=== PATIENT | female | born 1940 | race Caucasian/White ===

== ENCOUNTER → 2017-07-01 | Outpatient (CLI) | payer MEDICARE, OTHER ==
[~2017-07-01] MED LIST: ACIDOPHILUS1 EAC1 PO; ADVAIR DISCUS; ALBU90OI INH; ALBU90OI6; ALBU90OI6 INH; AMIT25; AMIT25 PO; AMIT50 PO; AMOCLA875 PO; AZIT250 PO; Amaryl1 MG; CALCA500CH PO; CALCIT950 PO; CALCIUM; CHOL10002; CHOL10002 PO; CITRACAL + BON1 EACH PO; CITRACAL PO; CITRACAL-VIT D1 EAC2; CODGUAEL PO; CYAN500 PO; Crutch1 EACH MISC; Dazidox10 MG PO; ERGO400 PO; FAMO20; FAMO20 PO; FLUSAL2505 IH; FURO20 PO; Flonase 0.05% N16 GM; GLIM2 PO; GLIM4 PO; HYDACE7.5L PO; HYDGUAL120 PO; LANS30EC; LEVFLO500 PO; LIQUID B-11000 MCG/1; LOSA50; LOSA50 PO; METF500 PO; METF500C PO; METFORMIN PO; METO25ER; METO50 PO; METO50ER; NAPR220; OMEP20ER PO; OXYC10TA19 PO; Omeprazole20 M1 PO; POTASSIUM GLUC PO; PROBIOTIC1 EAC1 PO; Percocet 5-3251 EACH PO; RABE20; RAMI5; RAMI5 PO; RISE30; SITA100T2 PO; SPIRIVA INH; SUCR1 PO; TELM80 PO; TIOT18; TORS10 PO; TORSE20; TORSE20 PO; VITAMIN B122500 MCG PO; VITAMIN D3 PO; Ventolin Soln3 ML INH
[2017-07-01 09:35] LABS: Source, Urine Clean Catch
[2017-07-01 12:52] LABS: Bilirubin, Urine Neg (Neg); Blood, Urine 5+ (Neg); Glucose Qualitative, Urine 1+ (Neg); Ketones, Urine Neg (Neg); Leukocyte Esterase, Urine 2+ (Neg); Nitrite, Urine Neg (Neg); Protein, Urine 3+ (Neg); Urobilinogen, Urine NORM (Normal)
[2017-07-01 13:25] LABS: Appearance, Urine Hazy (Clear)
[2017-07-01 13:26] LABS: Color, Urine Yellow (P-Yellow)
[2017-07-01 13:27] LABS: Red Blood Cells, Urine TNTC /hpf (0-2); White Blood Cells, Urine 25-50 /hpf (0-5)
[2017-07-01 13:28] LABS: Bacteria Mod /hpf; Squamous Epithelial Cells Rare /hpf (Few)
== END | disposition home or self-care (01) ==
LOC: LAB 09:34
PROVIDERS: Internal Medicine
DX: C34.81 Malignant neoplasm of overlapping sites of right bronchus and lung (principal); C79.51 Secondary malignant neoplasm of bone; D70.2 Other drug-induced agranulocytosis; M79.1 Myalgia; G89.3 Neoplasm related pain (acute) (chronic); R97.8 Other abnormal tumor markers; R30.0 Dysuria; T45.1X5A Adverse effect of antineoplastic and immunosuppressive drugs, initial encounter
CPT/HCPCS: 81001; 87086

== ENCOUNTER → 2017-07-18 | Outpatient (CLI) | payer MEDICARE, OTHER ==
[2017-07-18 11:10] LABS: Source, Urine Clean Catch
[2017-07-18 13:02] LABS: Bilirubin, Urine Neg (Neg); Blood, Urine 5+ (Neg); Glucose Qualitative, Urine Neg (Neg); Ketones, Urine Neg (Neg); Leukocyte Esterase, Urine 1+ (Neg); Nitrite, Urine Neg (Neg); Protein, Urine 3+ (Neg); Specific Gravity, Urine 1.015 (1.003-1.022); Urobilinogen, Urine NORM (Normal)
[2017-07-18 13:13] LABS: Appearance, Urine Cloudy (Clear); Color, Urine Yellow (P-Yellow)
[2017-07-18 13:14] LABS: Bacteria Few /hpf; Red Blood Cells, Urine TNTC /hpf (0-2); Squamous Epithelial Cells Few /hpf (Few)
== END ==
LOC: LAB SHORT 11:04 → LAB 11:04 → LAB FUT 07-03 13:05
PROVIDERS: Internal Medicine
DX: N39.0 Urinary tract infection, site not specified (principal)
CPT/HCPCS: 81001; 87086

== ENCOUNTER 2018-07-31 09:43 | Day surgery (SDC) | payer MEDICARE, OTHER ==
[~2018-07-31] VITALS: Ht 152.4 cm; Wt 60.3 kg
[~2018-07-31 09:43] MED LIST changes: +ALBU2.5V5 NEB; +ALBU90OI61 INH; +Advair Hfa 115-12 GM INH; +BACL10 PO; +HYDCOR10 PO; +LORA.5 PO; +LOSA25 PO; +Lopressor 50 mg50 MG PO; +OXYC5 PO
[2018-07-31] MEDS ORDERED: METF500C PO (11:21)
[2018-07-31] MEDS ORDERED: CETI5 PO (11:22)
--- NOTE | 2018-07-31 12:02 | NUR ---
07/31/18 1202 Tello Kelley WHEN QUESTIONED PT DENIES HAVING A POLST WITH A DNR STATUS. PT STATES SHE IS A FULL CODE NOT A DNR.
--- NOTE | 2018-07-31 13:08 | NUR ---
07/31/18 Verónica FerrisKisha IMAGING TO ROOM.
== END 2018-07-31 14:01 | disposition home or self-care (01) ==
LOC: ORSCSDS 09:43
DX: C34.90 Malignant neoplasm of unspecified part of unspecified bronchus or lung (principal); C34.81 Malignant neoplasm of overlapping sites of right bronchus and lung; C79.51 Secondary malignant neoplasm of bone; C79.70 Secondary malignant neoplasm of unspecified adrenal gland; I10 Essential (primary) hypertension; J44.9 Chronic obstructive pulmonary disease, unspecified; E11.9 Type 2 diabetes mellitus without complications; K21.9 Gastro-esophageal reflux disease without esophagitis; Z79.899 Other long term (current) drug therapy
CPT/HCPCS: 77001; 82947; 93005; 93010; C1788; J1100; J1642; J2250; J2405; J3010; J7120

== ENCOUNTER 2019-01-22 09:19 | Day surgery (SDC) | payer MEDICARE, OTHER ==
[~2019-01-22 09:19] MED LIST changes: +CETI5 PO
== END 2019-01-22 23:59 | disposition home or self-care (01) ==
LOC: CT 09:19 → MHTC 09:20 → CT 10:00
DX: C79.51 Secondary malignant neoplasm of bone (principal); C34.81 Malignant neoplasm of overlapping sites of right bronchus and lung; I10 Essential (primary) hypertension; E11.9 Type 2 diabetes mellitus without complications; J44.9 Chronic obstructive pulmonary disease, unspecified; K21.9 Gastro-esophageal reflux disease without esophagitis; Z87.891 Personal history of nicotine dependence; Z79.899 Other long term (current) drug therapy; Z79.52 Long term (current) use of systemic steroids; Z88.1 Allergy status to other antibiotic agents; Z88.0 Allergy status to penicillin; Z91.09 Other allergy status, other than to drugs and biological substances
CPT/HCPCS: 20225; 77012; 88307; 88311; 88342

== ENCOUNTER 2019-02-08 11:52 | Emergency (ER) | payer MEDICARE, OTHER ==
[~2019-02-08] VITALS: Ht 149.9 cm; Wt 59.0 kg
[2019-02-08 12:36] LABS: BASOPHILS ABSOLUTE AUTO 0.03 K/mm3 (0.00-0.23); BASOPHILS PERCENT AUTO 1 % (0-2); EOSINOPHILS ABSOLUTE AUTO 0.08 K/mm3 (0.00-0.68); EOSINOPHILS PERCENT AUTO 2 % (0-6); Hemoglobin 12.9 g/dL (11.5-16.0); IMMATURE GRAN ABSOLUTE AUTO 0.02 K/mm3 (0.00-0.10); IMMATURE GRAN PERCENT AUTO 0 % (0-1); LYMPHOCYTES ABSOLUTE AUTO 0.45 K/mm3 (0.84-5.20); LYMPHOCYTES PERCENT AUTO 10 % (21-46); MONOCYTES ABSOLUTE AUTO 0.52 K/mm3 (0.16-1.47); MONOCYTES PERCENT AUTO 11 % (4-13); Mean Corpuscular HGB 30.6 pg (26.0-34.0); Mean Corpuscular HGB Conc 33.9 g/dL (31.5-36.5); Mean Corpuscular Volume 90 fL (80-100); Mean Platelet Volume 9.8 fL (9.1-12.4); NEUTROPHILS ABSOLUTE AUTO 3.45 K/mm3 (1.96-9.15); NEUTROPHILS PERCENT AUTO 76 % (41-73); Platelet Count 124 K/mm3 (150-400); RDW Coefficient Variation 14.2 % (11.7-14.2); RDW Standard Deviation 46.4 fL (35.1-46.3); Red Blood Cell Count 4.21 M/mm3 (3.80-5.20); White Blood Cell Count 4.55 K/mm3 (4.00-11.30)
[2019-02-08 12:56] LABS: Alanine Aminotransfer (ALT/SGP 31 U/L (12-78); Albumin, Blood 3.2 g/dL (3.4-5.0); Alk Phos 147 U/L (50-136); Anion Gap 6 mmol/L (6-16); Aspartate Aminotrans (AST/SGOT 24 U/L (12-37); Bilirubin, Total 1.3 mg/dL (0.1-1.0); Blood Urea Nitrogen 11 mg/dL (8-24); Bun/Creatinine Ratio 23.9 (12.0-20.0); CO2, Blood 23 mmol/L (21-32); Calcium, Blood 8.8 mg/dL (8.5-10.1); Chloride, Blood 106 mmol/L (98-108); Creatinine, Blood 0.46 mg/dL (0.40-1.00); Globulin, Blood 3.2 g/dL (2.2-4.0); Glomerular Filtration Rate >60 (60-); Glucose, Blood 330 mg/dL (70-99); Potassium, Blood 3.2 mmol/L (3.5-5.5); Sodium, Blood 135 mmol/L (136-145); Total Protein, Blood 6.4 g/dL (6.4-8.2); Troponin I <0.015 ng/mL (0.000-0.040)
[2019-02-08 14:10] LABS: Source, Urine Clean Catch
[2019-02-08 14:15] LABS: Blood, Urine 5+ (Neg); Glucose Qualitative, Urine 4+ (Neg); Ketones, Urine 1+ (Neg); Leukocyte Esterase, Urine 3+ (Neg); Nitrite, Urine Pos (Neg); Protein, Urine 3+ (Neg); Specific Gravity, Urine 1.015 (1.003-1.022); Urobilinogen, Urine 2+ (Normal)
[2019-02-08 14:19] LABS: Appearance, Urine Cloudy (Clear); Bilirubin, Urine 1+ (Neg); Color, Urine Amber (P-Yellow)
[2019-02-08 14:22] LABS: Bacteria Many /hpf; Red Blood Cells, Urine TNTC /hpf (0-2); Squamous Epithelial Cells Few /hpf (Few); White Blood Cells, Urine TNTC /hpf (0-5)
[2019-02-08] MEDS ORDERED: Cipro500 MG PO (16:24)
== END 2019-02-08 16:42 | disposition home or self-care (01) ==
LOC: ER 11:52
PROVIDERS: Physician Assistant
DX: N39.0 Urinary tract infection, site not specified (principal); J44.9 Chronic obstructive pulmonary disease, unspecified; I50.9 Heart failure, unspecified; C34.90 Malignant neoplasm of unspecified part of unspecified bronchus or lung; C79.51 Secondary malignant neoplasm of bone; Z87.891 Personal history of nicotine dependence; Z88.8 Allergy status to other drugs, medicaments and biological substances; Z91.048 Other nonmedicinal substance allergy status; Z88.1 Allergy status to other antibiotic agents; Z79.899 Other long term (current) drug therapy; Z79.84 Long term (current) use of oral hypoglycemic drugs
CPT/HCPCS: 80053; 81001; 84484; 85025; 87077; 87086; 87186; 93005; 93010; 96365; 96366; 99283-25; J0744; J1642; J7030; P9612

== ENCOUNTER 2019-02-16 10:10 | Emergency (ER) | payer MEDICARE, OTHER ==
[~2019-02-16] VITALS: Ht 149.9 cm; Wt 57.1 kg
[~2019-02-16 10:10] MED LIST changes: +Cipro500 MG PO
[2019-02-16 12:00] LABS: BASOPHILS ABSOLUTE AUTO 0.04 K/mm3 (0.00-0.23); BASOPHILS PERCENT AUTO 1 % (0-2); EOSINOPHILS ABSOLUTE AUTO 0.04 K/mm3 (0.00-0.68); EOSINOPHILS PERCENT AUTO 1 % (0-6); Hematocrit 38.7 % (33.0-51.0); Hemoglobin 13.7 g/dL (11.5-16.0); IMMATURE GRAN ABSOLUTE AUTO 0.02 K/mm3 (0.00-0.10); IMMATURE GRAN PERCENT AUTO 0 % (0-1); LYMPHOCYTES ABSOLUTE AUTO 0.28 K/mm3 (0.84-5.20); LYMPHOCYTES PERCENT AUTO 5 % (21-46); MONOCYTES ABSOLUTE AUTO 0.41 K/mm3 (0.16-1.47); MONOCYTES PERCENT AUTO 7 % (4-13); Mean Corpuscular HGB 30.9 pg (26.0-34.0); Mean Corpuscular HGB Conc 35.4 g/dL (31.5-36.5); Mean Platelet Volume 10.2 fL (9.1-12.4); NEUTROPHILS ABSOLUTE AUTO 5.07 K/mm3 (1.96-9.15); NEUTROPHILS PERCENT AUTO 87 % (41-73); Platelet Count 145 K/mm3 (150-400); RDW Coefficient Variation 14.7 % (11.7-14.2); RDW Standard Deviation 45.8 fL (35.1-46.3); Red Blood Cell Count 4.43 M/mm3 (3.80-5.20); White Blood Cell Count 5.86 K/mm3 (4.00-11.30)
[2019-02-16 12:16] LABS: Mean Corpuscular Volume 87 fL (80-100)
[2019-02-16 12:19] LABS: Alanine Aminotransfer (ALT/SGP 34 U/L (12-78); Albumin, Blood 3.5 g/dL (3.4-5.0); Albumin/Globulin Ratio 1.1 (0.8-1.8); Alk Phos 163 U/L (50-136); Anion Gap 10 mmol/L (6-16); Aspartate Aminotrans (AST/SGOT 35 U/L (12-37); Blood Urea Nitrogen 8 mg/dL (8-24); Bun/Creatinine Ratio 14.7 (12.0-20.0); CO2, Blood 26 mmol/L (21-32); Calcium, Blood 8.9 mg/dL (8.5-10.1); Chloride, Blood 103 mmol/L (98-108); Creatinine, Blood 0.55 mg/dL (0.40-1.00); Globulin, Blood 3.1 g/dL (2.2-4.0); Glomerular Filtration Rate >60 (60-); Glucose, Blood 276 mg/dL (70-99); Potassium, Blood 2.7 mmol/L (3.5-5.5); Sodium, Blood 139 mmol/L (136-145); Total Protein, Blood 6.6 g/dL (6.4-8.2)
[2019-02-16 13:40] LABS: Source, Urine Clean Catch
[2019-02-16 13:50] LABS: Bilirubin, Urine Neg (Neg); Blood, Urine 1+ (Neg); Glucose Qualitative, Urine 4+ (Neg); Ketones, Urine 2+ (Neg); Leukocyte Esterase, Urine 1+ (Neg); Nitrite, Urine Neg (Neg); Protein, Urine 2+ (Neg); Specific Gravity, Urine 1.005 (1.003-1.022); Urobilinogen, Urine NORM (Normal)
[2019-02-16 14:03] LABS: Appearance, Urine Clear (Clear); Color, Urine Yellow (P-Yellow)
[2019-02-16 14:11] LABS: White Blood Cells, Urine 0-2 /hpf (0-5)
[2019-02-16 14:12] LABS: Bacteria Mod /hpf; Red Blood Cells, Urine 0-2 /hpf (0-2); Squamous Epithelial Cells Few /hpf (Few)
[2019-02-16] MEDS ORDERED: K-Dur20 MEQ PO (14:35)
[2019-02-16] MEDS ORDERED: Zofran4 MG PO (14:35)
[2019-02-16] MEDS ORDERED: LEVFLO500 PO (14:35)
--- NOTE | 2019-02-16 15:10 | NUR ---
Initial Visit: ED Palliative Care Consult for Goals of Care. Spoke with Dr Martinez and discussed case. Pt has metastatic adenocarcinoma and would benefit with a discussion regarding goals of care. Pt is A&O and reports 7/10 generalized pain. Pt reports nausea is now managed with receiving Zofran. Pt denies dyspnea and anxiety at this time. Pt reports experiencing dyspnea with exertion. Pt reports her current regimen manages her pain. She reports taking 5mg of oxycodone and rubs CBD oil on her skin. Pt's and family friend are present during visit. Engaged in therapeutic discussion regarding goals of care. Listened as Pt discusses her treatments she receives from Dr Bruce and Dr Bosch. She states she receives palliative treatment wich has prolonged her life for [address] Bruce would like to start her on Optiva and should know if medication is effective within 2 treatments. She reports having a conversation with Dr Bosch and hospice was mentioned. Educated on hospice philosophy with V/U made by Pt and family. Pt's Ian admitts to having significant anxiety through this process and states I want her to live. Validated Ian concerns and offered emotional support. Pt reports she will consider hospice after determining if new treatment is effective. Left palliative care contact information and instructed Pt to call with any questions or concerns. Spoke with Dr Martinez and he reports plan to discharge Pt home. Palliative Care will remain available.
== END 2019-02-16 16:10 | disposition home or self-care (01) ==
LOC: ER 10:10
PROVIDERS: Emergency Medicine
DX: E87.6 Hypokalemia (principal); E86.0 Dehydration; N39.0 Urinary tract infection, site not specified; C80.1 Malignant (primary) neoplasm, unspecified; I11.0 Hypertensive heart disease with heart failure; I50.9 Heart failure, unspecified; J44.9 Chronic obstructive pulmonary disease, unspecified; E11.9 Type 2 diabetes mellitus without complications; Z85.118 Personal history of other malignant neoplasm of bronchus and lung; Z87.891 Personal history of nicotine dependence; Z88.8 Allergy status to other drugs, medicaments and biological substances; Z91.048 Other nonmedicinal substance allergy status; Z88.1 Allergy status to other antibiotic agents; Z79.899 Other long term (current) drug therapy; Z79.84 Long term (current) use of oral hypoglycemic drugs
CPT/HCPCS: 36415; 70450; 80053; 81001; 85025; 87086; 93005; 93010; 96361; 96365; 96366; 96375; 99285-25; J1642; J2405; J3480; J7030